=== PATIENT | female | born 1990 | race Caucasian/White ===

== ENCOUNTER 2017-03-21 07:50 | Emergency (ER) | payer OTHER ==
[~2017-03-21] VITALS: Ht 162.6 cm; Wt 57.6 kg
[2017-03-21 08:00] VITALS: Ht 162.6 cm; Wt 57.6 kg
[2017-03-21 10:00] VITALS: BP 110/75
== END 2017-03-21 10:01 | disposition home or self-care (01) ==
LOC: ED 07:50
DX: M43.6 Torticollis (principal)
CPT/HCPCS: J1170; J1885; Q0162

== ENCOUNTER 2017-08-21 22:10 | Emergency (ER) | payer OTHER ==
[~2017-08-21] VITALS: Ht 162.6 cm; Wt 54.9 kg
[2017-08-21 22:35] VITALS: Ht 162.6 cm; Wt 54.9 kg
[2017-08-22 02:01] LABS: BASOPHIL % 0.1 % (0-2); PLATELET COUNT 152 x10^3mcL (130-400); RED CELL DISTRIBUTION WIDTH 12.4 % (11.5-14.5)
[2017-08-22 02:10] LABS: CALCIUM 8.2 mg/dL (8.5-10.1); CHLORIDE SERUM 101 mmol/L (98-107); GLUCOSE SERUM 97 mg/dL (74-106); POTASSIUM SERUM 3.5 mmol/L (3.5-5.1); SODIUM SERUM 135 mmol/L (136-145)
[2017-08-22 02:16] LABS: CREATININE SERUM 0.8 mg/dL (0.6-1.0); GFR1 > 60 mL/min
[2017-08-22 05:11] VITALS: BP 92/58
== END 2017-08-22 05:11 | disposition home or self-care (01) ==
LOC: ED 22:10
PROVIDERS: Emergency Medicine
DX: R51 Headache (principal); R50.9 Fever, unspecified
CPT/HCPCS: J1885; J7030

== ENCOUNTER 2017-10-02 11:12 | Emergency (ER) | payer OTHER ==
[~2017-10-02] VITALS: Ht 162.6 cm; Wt 54.1 kg
[2017-10-02 11:32] VITALS: BP 130/74; Ht 162.6 cm; Wt 54.1 kg
== END 2017-10-02 12:06 | disposition home or self-care (01) ==
LOC: ED 11:12
DX: J02.9 Acute pharyngitis, unspecified (principal); J03.90 Acute tonsillitis, unspecified

== ENCOUNTER 2017-10-12 10:09 | Emergency (ER) | payer OTHER ==
[~2017-10-12] VITALS: Ht 162.6 cm; Wt 53.2 kg
[2017-10-12 10:18] VITALS: BP 99/67; Ht 162.6 cm; Wt 53.2 kg
== END 2017-10-12 11:05 | disposition home or self-care (01) ==
LOC: ED 10:09
DX: K12.0 Recurrent oral aphthae (principal)

== ENCOUNTER 2017-10-15 09:40 | Emergency (ER) | payer OTHER ==
[~2017-10-15] VITALS: Ht 162.6 cm; Wt 54.4 kg
[2017-10-15 09:45] VITALS: BP 103/71; Ht 162.6 cm; Wt 54.4 kg
== END 2017-10-15 10:14 | disposition home or self-care (01) ==
LOC: ED 09:40
DX: K12.0 Recurrent oral aphthae (principal)

== ENCOUNTER 2019-04-27 09:32 | Emergency (ER) | payer OTHER ==
[~2019-04-27] VITALS: Ht 162.6 cm; Wt 56.7 kg
[2019-04-27 09:46] VITALS: BP 110/56; Ht 162.6 cm; Wt 56.7 kg
== END 2019-04-27 11:04 | disposition left against medical advice (07) ==
LOC: ED 09:32
DX: Z53.21 Procedure and treatment not carried out due to patient leaving prior to being seen by health care provider (principal)

== ENCOUNTER 2019-04-27 21:14 | Emergency (ER) | payer OTHER ==
[~2019-04-27] VITALS: Ht 162.6 cm; Wt 57.6 kg
[2019-04-27 21:37] VITALS: Ht 162.6 cm; Wt 57.6 kg
[2019-04-28 00:32] VITALS: BP 111/47
== END 2019-04-28 00:32 | disposition home or self-care (01) ==
LOC: ED 21:14
DX: M54.30 Sciatica, unspecified side (principal)
CPT/HCPCS: J1885